=== PATIENT | male | born 1990 ===

== ENCOUNTER 2022-12-09 03:56 | Day surgery (SDC) | payer OTHER ==
[2022-12-09 11:04] VITALS: BMI 22.4
[2022-12-09] MEDS ORDERED: MIDAZOLAM HCL 2 MG/2 ML SINGLE DOSE VIAL ONE (11:20)
[2022-12-09 12:30] VITALS: RESP 18
[2022-12-09 14:02] VITALS: BP 118/64; PULSE 61; TEMP 97.2
== END 2022-12-09 13:55 | disposition home or self-care (01) ==
LOC: JASU-SURG 03:56
PROVIDERS: ATTEND Urology
PROC: 0TF3XZZ Fragmentation in Right Kidney Pelvis, External Approach (ICD-10-PCS; principal; 2022-12-09 11:30)
DX: N20.0 Calculus of kidney (principal)